=== PATIENT | female | born 1985 | race Caucasian/White ===

== ENCOUNTER 2019-06-27 15:15 | Inpatient (IN) | payer MEDICAID ==
--- NOTE | 2019-06-29 07:36 | Admission Physical ---
Datetime Report Generated by CPN: 06/29/2019 07:36 CURRENT ADMISSION Chief Complaint: Scheduled Induction of Labor Indication for Induction: Post Dates Admit Impression : Postterm, Intrauterine ; Induction of Labor Admit Plan: Admit to Unit; Initiate Labor Induction Protocol ALLERGIES Medication Allergies: Yes Medication Allergies: Penicillins/SV (06/29/2019); amoxicillin/SV (06/29/2019) Latex: No Latex Allergies Food Allergies: none Environmental Allergies: none OBSTETRICAL HISTORY EDC: 06/22/2019 00:00 : 4 Para: 3 Term: 3 : 0 SAB: 0 IAB: 0 Livin Gestational Diabetes: No Rh Sensitization: No Incompetent Cervix: No ZAHRA: No Infertility: No ART Treatment: No Uterine Anomaly: Yes IUGR: No Hx Previous C/S: No Macrosomia: No Hx Loss/Stillborn: No PIH: No Hx : No Placenta Previa/Abruption: No Depression/PP Depression: No PTL/PROM: No Post Hemorrhage: No Current Procedures: Ultrasound; NST Obstetrical History Comments: g1-2004, , 38 weeks, male, 5lb 10 oz g2-2007, , 40 weeks, male, 6lb 0 oz g3-2008, , 38 weeks, male, 5lb 6oz g4-current , LPNC per patient she has had a history of a "collapsed uterus" SEE RECORDS Alcohol: No Marijuana : No Cocaine: No Other Illicit Drugs: No Cigarettes: Former Smoker. [id number] MEDICAL HISTORY Diabetes: No Blood Transfusion: No Pulmonary Disease (Asthma, TB): No Breast Disease: Yes Hypertension: Yes District Operations Manager Surgery: No Heart Disease: No Hosp/Surgery: Yes Autoimmune Disorder: No Anesthetic Complications: No Kidney Disease: No Abnormal Pap Smear: No Neuro/Epilepsy: No Psychiatric Disorders: No Other Medical Diseases: No Hepatitis/Liver Disease: No Significant Family History: No Varicosities/Phlebitis: No Trauma/Violence : No Thyroid Dysfunction: Yes Medical History Comments: childbirth x 3, past smoker, htn as a child that has resolved, hyperactive thyroid, breast augmentation, per patient she has had a history of a "collapsed uterus" INFECTIOUS HISTORY Gonorrhea: No Genital Herpes: No Chlamydia: No Tuberculosis: No Syphilis: No Hepatitis: No HIV/AIDS Exposure: No Rash or Viral Illness: No HPV: No PHYSICAL EXAM General: Normal HEENT: Normal Neurologic: Normal Thyroid: Normal Heart: Normal Lungs: Normal Breast: Normal Back: Normal Abdomen: Normal Genitourinary Exam: Normal Extremities: Normal DTRs: Normal Pelvic Type: Adequate Vital Signs: Reviewed VAGINAL EXAM Dilatation: 1 Effacement: 50 Station: -3 MEMBRANES Pooling: Negative Membranes: Intact FETUS A EGA: 41.0 Monitoring: External US FHR- Baseline: 140 Variability: Moderate 6-25bpm Accelerations: 15X15 Decelerations: None Estimated Weight (gm): 3800 Presentation: Vertex PLANS FOR LABOR AND DELIVERY Labor and Delivery: None Pain Management: Epidural Feeding Preference: Breast Benefit of Breast Feed Discussed: Yes Circumcision: Yes INFORMED CONSENT Signature: with User ID: [email or web address]
[2019-06-29 07:41] LABS: APPEARANCE,URINE SLIGHTLY-CLOUDY; BILIRUBIN,URINE NEGATIVE (NEGATIVE); COLOR,URINE YELLOW; GLUCOSE, URINE NEGATIVE (NEGATIVE); KETONES,URINE NEGATIVE (NEGATIVE); LEUKOCYTE ESTERASE,URINE NEGATIVE (NEGATIVE); NITRITE,URINE NEGATIVE (NEGATIVE); PROTEIN,URINE NEGATIVE (NEGATIVE); URINE SPECIFIC GRAVITY 1.019; UROBILINOGEN,URINE NEGATIVE mg/dL (<2.0)
[2019-06-29 07:46] LABS: ABSOLUTE LYMPHOCYTES (AUTO) 1.9 10^3/uL (0.5-4.7); ABSOLUTE MONOCYTES (AUTO) 0.5 10^3/uL (0.1-1.4); ABSOLUTE NEUT (AUTO) 4.2 10^3/uL (1.7-8.2); BASOPHILS % (AUTO) 0.3 % (0-2); EOSINOPHILS % (AUTO) 0.4 % (0-6); HEMATOCRIT 33.8 % (36.0-47.0); HEMOGLOBIN 11.9 g/dL (12.0-15.5); LYMPHOCYTES % (AUTO) 28.6 % (13-45); MEAN CORPUSCULAR HEMOGLOBIN 32.3 pg (27.0-33.4); MEAN CORPUSCULAR HGB CONC 35.3 g/dL (32.0-36.0); MEAN CORPUSCULAR VOLUME 92 fl (80-97); MONOCYTES % (AUTO) 7.9 % (3-13); PLATELET COUNT 154 10^3/uL (150-450); RED BLOOD COUNT 3.69 10^6/uL (3.72-5.28); RED CELL DISTRIBUTION WIDTH 13.1 % (11.5-14.0); SEGMENTED NEUTROPHILS % (AUTO) 62.8 % (42-78); TOTAL CELLS COUNTED % (AUTO) 100 %; WHITE BLOOD COUNT 6.7 10^3/uL (4.0-10.5)
[2019-06-29 07:57] LABS: URINE AMPHETAMINES SCREEN NEGATIVE; URINE BARBITURATES SCREEN NEGATIVE; URINE BENZODIAZEPINES SCREEN NEGATIVE; URINE COCAINE SCREEN NEGATIVE; URINE MARIJUANA (THC) SCREEN NEGATIVE; URINE METHADONE SCREEN NEGATIVE; URINE PHENCYCLIDINE SCREEN NEGATIVE
[2019-06-29] MEDS ORDERED: MISOPROSTOL 0.2 MG TABLET ONE (08:54)
[2019-06-29] MEDS ORDERED: OXYTOCIN 10 UNIT/ML VIAL ONE (08:54)
[2019-06-29] MEDS ORDERED: OXYTOCIN/NORMAL SALINE 20 UNIT/1,000 ML RTUINJ ONE (08:55)
[2019-06-29] MEDS ORDERED: LIDOCAINE 1% INJ-PF (10 MG/ML) 30 ML SDV ONE (08:55)
[2019-06-29] MEDS ORDERED: RINGERS SOLUTION,LACTATED 1,000 ML IV PRN (09:09)
[2019-06-29] MEDS ORDERED: OXYTOCIN/NORMAL SALINE 20 UNIT/1,000 ML RTUINJ IV PRN ×2 (09:10→21:30)
[2019-06-29] MEDS ORDERED: HYDROMORPHONE HCL INJ/PF 2 MG/ML AMPULE ONE ×2 (14:39→17:31)
[2019-06-29] MEDS ORDERED: HYDROMORPHONE HCL INJ/PF 2 MG/ML AMPULE IV ONE ×2 (15:30→17:52)
[2019-06-29] MEDS ORDERED: FENTANYL/BUPIVACAINE/NS/PF 300 MCG/150 ML RTUINJ EPI ONE (18:35)
[2019-06-29] MEDS ORDERED: EPHEDRINE SULFATE INJ 50 MG/1 ML AMPULE ONE (18:35)
[2019-06-29] MEDS ORDERED: BUPIVACAINE HCL 0.25 % INJ/PF (2.5 MG/1 ML) 30 ML VIAL ONE (18:35)
[2019-06-29] MEDS ORDERED: BENZOCAINE/MENTHOL AEROSOL SPRAY 56 ML TOP PRN (21:30)
[2019-06-29] MEDS ORDERED: PROMETHAZINE HCL INJ 25 MG/1 ML VIAL IV PRN (21:30)
[2019-06-29] MEDS ORDERED: ZOLPIDEM TARTRATE 5 MG TABLET PO PRN (21:30)
[2019-06-29] MEDS ORDERED: MEASLES,MUMPS&RUBELLA VACC/PF 0.5 ML VIAL SUBCUT PRN (21:30)
[2019-06-29] MEDS ORDERED: DIPHENHYDRAMINE HCL 25 MG CAPSULE PO PRN (21:30)
[2019-06-29] MEDS ORDERED: DIBUCAINE 1% OINTMENT 28 GM TP PRN (21:30)
[2019-06-29] MEDS ORDERED: PSEUDOEPHEDRINE HCL 30 MG TABLET PO PRN (21:30)
[2019-06-29] MEDS ORDERED: PROMETHAZINE HCL 25 MG SUPP.RECT PR PRN (21:30)
[2019-06-29] MEDS ORDERED: ACETAMINOPHEN 650 MG SUPP.RECT PR PRN (21:30)
[2019-06-29] MEDS ORDERED: DIPH/PERTUSS(ACELL)/TETANUS VAC/PF 0.5 ML SYR (>=10YO) IM PRN (21:30)
[2019-06-29] MEDS ORDERED: MAGNESIUM HYDROXIDE SUSP 30 ML UDCUP PO PRN (21:30)
[2019-06-29] MEDS ORDERED: GLYCERIN/WITCH HAZEL LEAF 1 EACH MED..WIPE TP PRN (21:30)
[2019-06-29] MEDS ORDERED: NA PHOS,M-B/NA PHOS,DI-BA (ADULT) 133 ML ENEMA PR PRN (21:30)
[2019-06-29] MEDS ORDERED: ACETAMINOPHEN WITH CODEINE #3 TABLET PO PRN ×2 (21:30)
[2019-06-29] MEDS ORDERED: PROMETHAZINE HCL 25 MG TABLET PO PRN (21:30)
--- NOTE | 2019-06-29 23:32 | Delivery Summary ---
Del Sum A-C Datetime Report Generated by CPN: 06/29/2019 23:32 DELIVERY PERSONNEL DELIVERY PERSONNEL: [id number] Delivery Doctor:: Alba Lala MD Labor and Delivery Nurse:: Maile Gudino RNalley worker Nurse:: Steffmarlo Bruno RN MATERNAL INFORMATION Delivery Anesthesia: Epidural Medications After Delivery: Pitocin Bolus-Please Comment; Pitocin Drip 20 Units/1000ml NSS Meds After Delivery Comment: Pitocin 20 units in 1000 NS Estimated Blood Loss (ml): 250 Delivery QBL: 250 Maternal Complications: None LABOR SUMMARY EDC: 06/22/2019 00:00 No. Babies in Womb: 1 Attempted: No Labor Anesthesia: Epidural LABOR INFORMATION Reason for Induction: Post Dates Onset of Labor: 06/29/2019 18:12 Complete Dilatation: 06/29/2019 21:08 Oxytocin: Induction Group B Beta Strep: negative Antibiotics # of Doses: 0 Steroids Given: None Reason Steroids Not Administered: Not Applicable MEMBRANES Membranes Rupture Method: Spontaneous Rupture of Membranes: 06/29/2019 18:40 Length of Rupture (hr): 2.72 Amniotic Fluid Color: Clear Amniotic Fluid Amount: Moderate Amniotic Fluid Odor: Normal STAGES OF LABOR Stage 1 hr: 2 Stage 1 min: 56 Stage 2 hr: 0 Stage 2 min: 15 Stage 3 hr: 0 Stage 3 min: 13 Total Time in Labor hr: 3 Total Time in Labor min: 24 VAGINAL DELIVERY Episiotomy: None Laceration #1: Vaginal Laceration Extension #1: N/A Laceration #2: None Laceration Extension #2: N/A Laceration #3: None Laceration Extension #3: N/A Laceration Repair: Yes Laceration Repair Note: small labial laceration repaired with one 3-0 chromic suture Sponge Count Correct: Vaginal Sweep Performed Sharps Count Correct: Yes CSECTION DELIVERY Primary Indication: N/A Secondary Indication: N/A CSection Incidence: N/A Labor: N/A Elective: N/A CSection Incision: N/A BABY A INFORMATION Delivery Date/Time: 06/29/2019 21:23 Method of Delivery: Vaginal Born in Route : No : N/A Forceps: N/A Vacuum Extraction: N/A Shoulder Dystocia : No PRESENTATION/POSITION BABY A Presentation: Cephalic Cephalic Presentation: Vertex Vertex Position: Right Occipital Anterior Breech Presentation: N/A PLACENTA INFORMATION BABY A Placenta Delivery Time : 06/29/2019 21:36 Placenta Method of Delivery: Spontaneous Placenta Status: Delivered SCORES BABY A Heart Rate 1 min: >100 bpm Resp Effort 1 min: Good Cry Reflex Irritability 1 min: Cough or Sneeze or Pulls Away Muscle Tone 1 min: Active Motion Color 1 min: Blue/Pale Resuscitation Effort 1 min: Tactile Stimulation SCORE 1 MIN: 8 Heart Rate 5 min: >100 bpm Resp Effort 5 min: Good Cry Reflex Irritability 5 min: Cough or Sneeze or Pulls Away Muscle Tone 5 min: Active Motion Color 5 min: Body Jaguas, Extremities Blue SCORE 5 MIN: 9 INFORMATION BABY A Gestational Age at Delivery: 41.0 Gestational Status: Late Term- 41- 41.6 Weeks Infant Outcome : Liveborn Condition : Stable Infant Sex: Male IDENTIFICATION BABY A Infant Verification Date/Time: 06/29/2019 21:33 ID Band Number: [id number] Mother's Name Verified: Yes RN Verifying : K Shahab, RN/ E Jilek, RN WEIGHT/LENGTH BABY A Birthweight (gm): 3580 Infant Weight (lb): 7 Weight (oz): 14 Length (in): 20.00 Infant Length (cm): 50.80 CORD INFORMATION BABY A No. Cord Vessels: 3 Nuchal Cord : N/A Cord Blood Taken: Aga Lala did not collect cord blood from placenta. Infant Suction: None ASSESSMENT BABY A Complications: None Physical Findings at Delivery: Within Normal Limits Infant Respirations: Appears Normal Skin to Skin: Yes Skin to Skin Time (min): 60 Transferred To: Remains with Mother BABY B INFORMATION : N/A SIGNATURES Signature: Electronically signed by Alba Lala MD ([facility]) on 06/29/2019 at 21:43 with User ID: [email or web address]
[2019-06-30] MEDS: IBUPROFEN 800 MG TABLET PO SCH ×4 (05:55→22:28)
[2019-06-30] MEDS: FAMOTIDINE 20 MG TABLET PO SCH ×3 (07:44→22:28)
[2019-06-30] MEDS: PRENATAL VITAMIN W DHA CAPSULE PO SCH (09:24)
[2019-06-30] MEDS: SENNOSIDES/DOCUSATE 8.6-50 MG 1 EACH TABLET PO SCH (09:24)
[2019-06-30] MEDS: DOCUSATE SODIUM 100 MG CAPSULE PO SCH ×2 (09:24→17:22)
[2019-06-30] MEDS: FERROUS SULFATE 325 MG TABLET PO SCH ×2 (09:24→17:22)
[2019-06-30 09:41] LABS: HEMATOCRIT 30.8 % (36.0-47.0); HEMOGLOBIN 10.9 g/dL (12.0-15.5); MEAN CORPUSCULAR HEMOGLOBIN 32.7 pg (27.0-33.4); MEAN CORPUSCULAR HGB CONC 35.5 g/dL (32.0-36.0); MEAN CORPUSCULAR VOLUME 92 fl (80-97); PLATELET COUNT 152 10^3/uL (150-450); RED BLOOD COUNT 3.35 10^6/uL (3.72-5.28); RED CELL DISTRIBUTION WIDTH 13.4 % (11.5-14.0)
--- NOTE | 2019-06-30 11:24 | PDOC PROGRESS REPORT ---
Subjective-OB Progress Note for:: 06/30/19 Subjective: Pt doing well, no concerns. She reports light bleeding, reg diet and voiding without difficulty. Physical Exam (OB) Vital Signs: Temp Pulse Resp BP Pulse Ox 97.7 F 66 16 121/71 99 06/30/19 07:56 06/30/19 07:56 06/30/19 07:56 06/30/19 07:56 06/30/19 07:56 Intake & Output 06/29/19 06/30/19 07/01/19 06:59 06:59 06:59 Intake Total 1300 Balance 1300 Weight 89.6 kg - Lochia Lochia Amount: Scant < 10 ml Lochia Color: Rubra/Red - Abdomen Description: Soft Hernia Present: No Fundal Description: Firm, Midline Fundal Height: u/u - u/2 Objective-Diagnostic Laboratory: 06/30/19 09:28 06/30/19 06/30/19 09:28 09:28 WBC 9.0 RBC 3.35 L Hgb 10.9 L Hct 30.8 L MCV 92 MCH 32.7 MCHC 35.5 RDW 13.4 Plt Count 152 Blood Type B NEGATIVE Assessment and Plan(PN) - Assessment and Plan (1) (spontaneous vaginal delivery) Is this a current diagnosis for this admission?: Yes (2) Normal course Is this a current diagnosis for this admission?: Yes (3) Encounter for induction of labor Is this a current diagnosis for this admission?: Yes (4) Post-dates Qualifiers: Post-term type: 40-42 weeks gestation Qualified Code(s): O48.0 - Post-term Is this a current diagnosis for this admission?: Yes (5) Rh negative status during Qualifiers: Trimester: unspecified trimester Qualified Code(s): O26.899 - Other specified related conditions, unspecified trimester; Z67.91 - Unspecified blood type, Rh negative Is this a current diagnosis for this admission?: Yes - Time Spent with Patient Time with patient: Less than 15 minutes Medications reviewed and adjusted accordingly: Yes - Disposition Anticipated Discharge: Home Within: within 24 hours
[2019-07-01] MEDS: IBUPROFEN 800 MG TABLET PO SCH ×2 (07:11→13:43)
[2019-07-01 07:40] VITALS: BP 107/76
[2019-07-01] MEDS: PRENATAL VITAMIN W DHA CAPSULE PO SCH (09:01)
[2019-07-01] MEDS: FERROUS SULFATE 325 MG TABLET PO SCH (09:01)
[2019-07-01] MEDS: DOCUSATE SODIUM 100 MG CAPSULE PO SCH (09:01)
[2019-07-01] MEDS: FAMOTIDINE 20 MG TABLET PO SCH (09:01)
[2019-07-01] MEDS: SENNOSIDES/DOCUSATE 8.6-50 MG 1 EACH TABLET PO SCH (09:01)
--- NOTE | 2019-07-01 14:24 | PDOC DISCHARGE SUMMARY ---
Impression - Admit/DC Date/PCP Admission Date/Primary Care Provider: 06/29/19 06:33 Discharge Date: 07/01/19 - Discharge Diagnosis (1) Acute blood loss anemia Is this a current diagnosis for this admission?: Yes (2) Encounter for induction of labor Is this a current diagnosis for this admission?: Yes (3) Normal course Is this a current diagnosis for this admission?: Yes (4) Obstetric labial laceration, delivered, current hospitalization Is this a current diagnosis for this admission?: Yes (5) Post-dates Is this a current diagnosis for this admission?: Yes (6) Rh negative status during Is this a current diagnosis for this admission?: Yes (7) (spontaneous vaginal delivery) Is this a current diagnosis for this admission?: Yes - Additional Information Resuscitation Status: Full Code Discharge Diet: As Tolerated, Regular Discharge Activity: Activity As Tolerated, Balance Activity w/Rest, No Lifting Over 10 Pounds, Pelvic Rest, No tub bath, Walk Frequently Prescriptions: Ibuprofen [Motrin 800 mg Tablet] 800 mg PO Q8HP PRN #20 tablet PRN Reason: For Pain Scale 1-3 Docusate Sodium [Colace 100 mg Capsule] 100 mg PO BID #60 capsule Ferrous Sulfate [Feosol 325 mg Tablet] 325 mg PO BID #60 tablet Home Medications: Pnv No.103/Folic/Om3s/Fish Oil [ Gummies] 1 tab PO DAILY 06/29/19 Docusate Sodium [Colace 100 mg Capsule] 100 mg PO BID #60 capsule 07/01/19 Ferrous Sulfate [Feosol 325 mg Tablet] 325 mg PO BID #60 tablet 07/01/19 Ibuprofen [Motrin 800 mg Tablet] 800 mg PO Q8HP PRN #20 tablet 07/01/19 Results Laboratory Results: WBC 9.0 10^3/uL (4.0-10.5) 06/30/19 09:28 RBC 3.35 10^6/uL (3.72-5.28) L 06/30/19 09:28 Hgb 10.9 g/dL (12.0-15.5) L 06/30/19 09:28 Hct 30.8 % (36.0-47.0) L 06/30/19 09:28 MCV 92 fl (80-97) 06/30/19 09:28 MCH 32.7 pg (27.0-33.4) 06/30/19 09:28 MCHC 35.5 g/dL (32.0-36.0) 06/30/19 09:28 RDW 13.4 % (11.5-14.0) 06/30/19 09:28 Plt Count 152 10^3/uL (150-450) 06/30/19 09:28 Lymph % (Auto) 28.6 % (13-45) 06/29/19 07:25 [place] % (Auto) 7.9 % (3-13) 06/29/19 07:25 Eos % (Auto) 0.4 % (0-6) 06/29/19 07:25 Baso % (Auto) 0.3 % (0-2) 06/29/19 07:25 Absolute Neuts (auto) 4.2 10^3/uL (1.7-8.2) 06/29/19 07:25 Absolute Lymphs (auto) 1.9 10^3/uL (0.5-4.7) 06/29/19 07:25 Absolute Monos (auto) 0.5 10^3/uL (0.1-1.4) 06/29/19 07:25 Absolute Eos (auto) 0.0 10^3/uL (0.0-0.6) 06/29/19 07:25 Absolute Basos (auto) 0.0 10^3/uL (0.0-0.2) 06/29/19 07:25 Seg Neutrophils % 62.8 % (42-78) 06/29/19 07:25 Urine Color YELLOW 06/29/19 06:45 Urine Appearance SLIGHTLY-CLOUDY 06/29/19 06:45 Urine pH 6.0 (5.0-9.0) 06/29/19 06:45 Ur Specific Burden 1.019 06/29/19 06:45 Urine Protein NEGATIVE mg/dL (NEGATIVE) 06/29/19 06:45 Urine Glucose (UA) NEGATIVE mg/dL (NEGATIVE) 06/29/19 06:45 Urine Ketones NEGATIVE mg/dL (NEGATIVE) 06/29/19 06:45 Urine Blood NEGATIVE (NEGATIVE) 06/29/19 06:45 Urine Nitrite NEGATIVE (NEGATIVE) 06/29/19 06:45 Urine Bilirubin NEGATIVE (NEGATIVE) 06/29/19 06:45 Urine Urobilinogen NEGATIVE mg/dL (<2.0) 06/29/19 06:45 Ur Leukocyte Esterase NEGATIVE (NEGATIVE) 06/29/19 06:45 Urine Ascorbic Acid NEGATIVE (NEGATIVE) 06/29/19 06:45 Urine Opiates Screen NEGATIVE 06/29/19 06:45 Urine Methadone Screen NEGATIVE 06/29/19 06:45 Ur Barbiturates Screen NEGATIVE 06/29/19 06:45 Ur Phencyclidine Scrn NEGATIVE 06/29/19 06:45 Ur Amphetamines Screen NEGATIVE 06/29/19 06:45 U Benzodiazepines Scrn NEGATIVE 06/29/19 06:45 Urine Cocaine Screen NEGATIVE 06/29/19 06:45 U Marijuana (THC) Screen NEGATIVE 06/29/19 06:45 RPR NONREACTIVE (NONREACTIVE) 06/29/19 07:25 Blood Type B NEGATIVE 06/30/19 09:28 Antibody Screen POSITIVE 06/29/19 07:25 Antibody Identification RHOGAM INDUCED ANTI-D 06/29/19 07:25 Screen NEGATIVE 06/30/19 09:28
== END 2019-07-01 14:57 | disposition home or self-care (01) | DRG 807 ==
LOC: LR 06-29 06:33 → 2S 06-29 23:46
PROVIDERS: ADMIT Obstetrics & Gynecology; ATTEND Obstetrics & Gynecology
PROC: 10E0XZZ Delivery of Products of Conception, External Approach (ICD-10-PCS; principal; 2019-06-29)
PROC: 0UQMXZZ Repair Vulva, External Approach (ICD-10-PCS; 2019-06-29)
PROC: 3E0234Z Introduction of Serum, Toxoid and Vaccine into Muscle, Percutaneous Approach (ICD-10-PCS; 2019-06-30)
DX: O48.0 Post-term pregnancy (principal); Z37.0 Single live birth; O26.893 Other specified pregnancy related conditions, third trimester; O70.0 First degree perineal laceration during delivery; O99.334 Smoking (tobacco) complicating childbirth; F17.211 Nicotine dependence, cigarettes, in remission; Z67.21 Type B blood, Rh negative; Z3A.41 41 weeks gestation of pregnancy
CPT/HCPCS: 36415; 80307; 81005; 85025; 85027; 85461; 86592; 86850; 86870; 86900; 86901; 94760; J1170; J2590; J2790; J3010; J3490